=== PATIENT | female | born 2000 | race Caucasian/White ===

== ENCOUNTER 2023-09-13 05:43 | Emergency (ER) | payer OTHER ==
[~2023-09-13] VITALS: Ht 149.9 cm; Wt 70.2 kg
[2023-09-13 06:12] LABS: BASOPHILS 0.8 % (0-2); EOSINOPHILS 0.4 % (0-6); HEMATOCRIT 38.2 % (35.0-50.0); LYMPHOCYTES 2.3 % (24-44); MCH 28.6 (27-36); MCV 84.1 fl (81-99); MONOCYTES 6.2 % (0-12); NEUTROPHILS 90.3 % (39-80); PLATELET COUNT 193 K/uL (140-440); RBC 4.54 M/ul (4.3-5.7); RDW 12.5 (10.5-15.0)
[2023-09-13 06:24] LABS: ALBUMIN 3.1 g/dL (3.4-5.0); ALBUMIN/GLOBULIN RATIO 0.78 (1.1-2.4); ANION GAP 14.3 (7-21); BILIRUBIN, TOTAL 0.4 ng/dL (0.2-1.0); BUN/CREATININE RATIO 7.4 (6.0-28.6); CALCIUM 8.3 mg/dL (8.5-10.1); CREATININE, SERUM 0.54 mg/dL (0.55-1.02); POTASSIUM 3.3 mmol/L (3.5-5.1); PROTEIN, TOTAL 7.1 g/dL (6.4-8.2)
[2023-09-13 06:36] LABS: BILIRUBIN, URINE NEGATIVE (negative); BLOOD/HGB, URINE NEGATIVE (Negative); KETONE, URINE SMALL (Negative); LEUK ESTERASE, URINE MODERATE (negative); NITRITE, URINE NEGATIVE (negative)
[2023-09-13 06:44] LABS: BACTERIA, URINE NONE SEEN /hpf (negative); CASTS, URINE NONE SEEN \\lpf; COLLECTION TYPE, URINE CLEAN CATCH; CRYSTALS, URINE NONE SEEN (0-1+); EPITHELIAL CELLS, URINE SQUAMOUS 2+ /lpf (0-1+); RED BLOOD CELLS, URINE 0-1 /hpf (0-5); REFLEX CULTURE, URINE No (No)
[2023-09-13 06:55] VITALS: BP 120/71
== END 2023-09-13 06:55 | disposition home or self-care (01) ==
LOC: ED 05:43
PROVIDERS: Emergency Medicine
DX: O98.511 Other viral diseases complicating pregnancy, first trimester (principal); J06.9 Acute upper respiratory infection, unspecified; Z3A.11 11 weeks gestation of pregnancy
CPT/HCPCS: 36415; 80048; 80053; 81001; 84702; 85025; 86900; 86901; 99284

== ENCOUNTER 2024-02-27 08:35 | Inpatient (IN) | payer OTHER ==
[~2024-02-27] VITALS: Ht 149.9 cm; Wt 93.4 kg
[2024-03-02 05:32] VITALS: BP 116/61
[2024-03-02 05:55] LABS: HEMATOCRIT 39.2 % (35.0-50.0); HEMOGLOBIN 13.6 g/dL (12.0-18.0); MCH 29.1 (27-36); MCHC 34.7 g/dl (30-36); MCV 83.9 fl (81-99); RBC 4.67 M/ul (4.3-5.7); RDW 14.5 (10.5-15.0)
[2024-03-02 06:17] LABS: AMPHETAMINES, URINE NEGATIVE (NEGATIVE); BARBITURATES, URINE NEGATIVE (NEGATIVE); BENZODIAZEPINE, URINE NEGATIVE (NEGATIVE); BUPRENORPHINE, URINE NEGATIVE (NEGATIVE); CANNABINOID, URINE NEGATIVE (NEGATIVE); COCAINE, URINE NEGATIVE (NEGATIVE); ECSTASY, URINE NEGATIVE (NEGATIVE); FENTANYL, URINE NEGATIVE (NEGATIVE); METHADONE, URINE NEGATIVE (NEGATIVE); OPIATES, URINE NEGATIVE (NEGATIVE); OXYCODONE, URINE NEGATIVE (NEGATIVE); PHENCYCLIDINE, URINE NEGATIVE (NEGATIVE)
[2024-03-02 06:33] LABS: ABO O; ANTIBODY SCREEN NEGATIVE; RH POSITIVE
[2024-03-02] MEDS ORDERED: OXYTOCIN 10 UNITS/ML VIAL ONE (06:35)
[2024-03-02] MEDS ORDERED: ePHEDrine sulfate 50 MG/ML AMP ONE (06:35)
[2024-03-02] MEDS ORDERED: DEXAMETHASONE SOD PHOS 4 MG/ML VIAL ONE (06:35)
[2024-03-02] MEDS ORDERED: ondansetron HCL 4 MG/2 ML VIAL ONE (06:35)
[2024-03-02] MEDS ORDERED: SODIUM CHLORIDE 0.9% 40 ML IV ONE (06:36)
[2024-03-02] MEDS ORDERED: Ropivacaine HCl 0.5% 30 ML VIAL ONE (06:36)
[2024-03-02] MEDS ORDERED: MORPHINE SULFATE 1 MG/ML VIAL ONE (06:37)
[2024-03-02] MEDS ORDERED: CEFAZOLIN SODIUM 2 GM/20 ML SYR IV SCH (07:00)
[2024-03-02] MEDS ORDERED: SOD+POT BICARB/CITRIC ACID 2 EA TABLET.EFF PO SCH (07:00)
[2024-03-02] MEDS ORDERED: LACTATED RINGER'S 2,000 ML IV PRN (07:30)
[2024-03-02] MEDS ORDERED: LACTATED RINGER'S 1,000 ML IV SCH ×2 (07:30→08:30)
[2024-03-02] MEDS ORDERED: LACTATED RINGER'S 3,000 ML IV ONE (07:32)
[2024-03-02] MEDS ORDERED: LIDOCAINE 2% VISCOUS 6 ML SYR TOP ONE (08:30)
[2024-03-02] MEDS ORDERED: PROMETHAZINE HCL 25 MG SUPP PR PRN (08:30)
[2024-03-02] MEDS ORDERED: OXYTOCIN/0.9 % SODIUM CHLORIDE 500 ML IV SCH (08:30)
[2024-03-02] MEDS ORDERED: PROMETHAZINE HCL 25 MG TAB PO PRN (08:30)
[2024-03-02] MEDS ORDERED: bisacodyL 10 MG SUPP PR PRN (08:30)
[2024-03-02] MEDS ORDERED: HYDROCODONE/ACETA 5/325 TAB PO PRN (08:30)
[2024-03-02] MEDS ORDERED: fentaNYL citrate 50 MCG/ML SDV IV PRN (08:45)
[2024-03-02] MEDS ORDERED: NALOXONE HCL 0.4 MG SYR IV PRN ×2 (08:45→09:00)
[2024-03-02] MEDS ORDERED: droPERidol 5 MG/2 ML VIAL IV PRN (08:45)
[2024-03-02] MEDS ORDERED: METOCLOPRAMIDE HCL 10 MG/2 ML SDV IV PRN ×2 (08:45→09:00)
[2024-03-02] MEDS ORDERED: MORPHINE SULFATE 10 MG/ML VIAL IV PRN (08:45)
[2024-03-02] MEDS ORDERED: IBLOOD GLUCOSE TEST STRIP 1 EA TEST VI PRN (08:45)
[2024-03-02] MEDS ORDERED: ondansetron HCL 4 MG/2 ML VIAL IV PRN ×2 (08:45→09:00)
[2024-03-02] MEDS ORDERED: PROCHLORPERAZINE EDISYLATE 10 MG/2 ML VIAL IV PRN ×2 (08:45→09:00)
--- NOTE | 2024-03-02 08:51 | NUR ---
03/02/24 0851 Addie Fan 0835-PT ARRIVES TO C ROOM 104, A+O X4, PT DENIES PAIN OR NAUSEA. VSS ON RA, RR EVEN AND UNLABORED. 0840-PT RESTING SEMI FOWLERS, FBC RN AT BEDSIDE ASSISTING W/ . PT DENIES PAIN OR NAUSEA, VS REMAIN STABLE ON RA. 0850-FINAL FUNDAL CHECK COMPLETED WITH FBC RN, BEDSIDE REPORT GIVEN, ALL QUESTIONS ANSWERED. PT SIPPING ON WATER, DENIES PAIN OR NAUSEA, VSS ON RA.
[2024-03-02 08:52] VITALS: BP 101/59
[2024-03-02] MEDS ORDERED: MORPHINE SULFATE 4 MG/ML VIAL IV PRN (09:00)
[2024-03-02] MEDS ORDERED: diphenhydrAMINE HCL 50 MG/ML VIAL IV PRN (09:00)
[2024-03-02] MEDS ORDERED: diphenhydrAMINE HCL 25 MG CAP PO PRN (09:00)
[2024-03-02] MEDS ORDERED: KETOROLAC TROMETHAMINE 30 MG/ML VIAL IV PRN (09:00)
[2024-03-02] MEDS ORDERED: SENNOSIDES/DOCUSATE 1 EA TAB PO SCH (09:00)
[2024-03-02] MEDS ORDERED: SIMETHICONE 125 MG TABLET CHEWABLE PO SCH (11:00)
[2024-03-02] MEDS ORDERED: KETOROLAC TROMETHAMINE 30 MG/ML VIAL IV SCH (14:00)
[2024-03-03 05:57] LABS: HEMATOCRIT 33.7 % (35.0-50.0); HEMOGLOBIN 11.6 g/dL (12.0-18.0); MCH 29.1 (27-36); MCHC 34.4 g/dl (30-36); MCV 84.5 fl (81-99); RBC 3.98 M/ul (4.3-5.7); RDW 14.6 (10.5-15.0)
[2024-03-03] MEDS ORDERED: CEFAZOLIN SODIUM 2 GM/20 ML SYR IV SCH (07:00)
[2024-03-03] MEDS ORDERED: SOD+POT BICARB/CITRIC ACID 2 EA TABLET.EFF PO SCH (07:00)
[2024-03-03] MEDS ORDERED: METOCLOPRAMIDE HCL 10 MG/2 ML SDV IV PRN (09:00)
[2024-03-03] MEDS ORDERED: PROCHLORPERAZINE EDISYLATE 10 MG/2 ML VIAL IV PRN (09:00)
[2024-03-03] MEDS ORDERED: ondansetron HCL 4 MG/2 ML VIAL IV PRN (09:00)
[2024-03-03] MEDS ORDERED: IBUPROFEN 600 MG TAB PO SCH (14:00)
== END 2024-03-04 17:00 | disposition home or self-care (01) | DRG 788 ==
LOC: FBC 03-02 04:51
PROVIDERS: ADMIT Obstetrics & Gynecology; ATTEND Obstetrics & Gynecology
PROC: 10D00Z1 Extraction of Products of Conception, Low, Open Approach (ICD-10-PCS; principal; 2024-03-02 07:00)
DX: O34.211 Maternal care for low transverse scar from previous cesarean delivery (principal); Z37.0 Single live birth; Z3A.36 36 weeks gestation of pregnancy; Z87.891 Personal history of nicotine dependence; Z79.899 Other long term (current) drug therapy; Z88.8 Allergy status to other drugs, medicaments and biological substances; Z90.89 Acquired absence of other organs
CPT/HCPCS: 01961; 36415; 76942; 80307; 85027; 86850; 86900; 86901; A9270; J0690; J1100; J1885; J2270; J2274; J2405; J2590; J2795; J7121